=== PATIENT | female | born 1980 | race Caucasian/White ===

== ENCOUNTER 2018-07-18 09:00 | Outpatient (RCR) | payer OTHER | END 2018-07-21 | LOC: PT 09:00 | PROVIDERS: ATTEND Internal Medicine | DX: R42 Dizziness and giddiness (principal); H81.13 Benign paroxysmal vertigo, bilateral ==

== ENCOUNTER 2018-08-04 16:46 | Outpatient (RCR) | payer OTHER | END 2018-08-21 | LOC: PT 16:46 | PROVIDERS: ATTEND Internal Medicine | DX: H81.13 Benign paroxysmal vertigo, bilateral (principal); R42 Dizziness and giddiness ==